=== PATIENT | female | born 1965 | race Caucasian/White ===

== ENCOUNTER 2018-03-09 05:26 | Emergency (ER) | payer MEDICAID, OTHER ==
[~2018-03-09] VITALS: Ht 165.1 cm; Wt 70.3 kg
[2018-03-09 05:30] VITALS: BP_SYST 119
[2018-03-09 06:22] VITALS: BP_SYST 128
== END 2018-03-09 06:22 | disposition home or self-care (01) ==
LOC: SED 05:26
DX: J06.9 Acute upper respiratory infection, unspecified (principal)
CPT/HCPCS: 99283